=== PATIENT | female | born 1955 | race Caucasian/White ===

== ENCOUNTER 2024-02-26 17:10 | Emergency (ER) | payer MEDICARE ==
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
[2024-02-26 18:06] LABS: Basophils % (A) 0 %; Eosinophils # (A) 0.3 k/uL (0-0.7); Eosinophils % (A) 3 %; HCT 42.6 % (34.0-46.0); HGB 13.9 gm/dL (11.4-16.0); Lymphocytes # (A) 1.4 k/uL (1.0-4.8); Lymphocytes % (A) 16 %; MCH 28.6 pg (25.0-35.0); MCHC 32.6 g/dL (31.0-37.0); MCV 87.7 fL (80.0-100.0); Mean Platelet Volume 7.3; Monocytes # (A) 0.4 k/uL (0-1.0); Monocytes % (A) 5 %; Neutrophils # (A) 6.7 k/uL (1.3-7.7); Neutrophils % (A) 76 %; Platelet Count 284 k/uL (150-450); RBC 4.86 m/uL (3.80-5.40); RDW 12.8 % (11.5-15.5); WBC 8.9 k/uL (3.8-10.6)
[2024-02-26 18:15] LABS: Partial Thromboplastin Time 26.3 sec (22.0-30.0); Prothrombin Time 11.2 sec (10.0-12.5)
[2024-02-26 18:21] LABS: ALT 12 U/L (4-34); AST 15 U/L (14-36); African American GFR (CKD) 77 (>60 ml/min/1.73 sqM); Albumin 4.4 g/dL (3.5-5.0); Alkaline Phosphatase 78 U/L (38-126); Anion Gap 7 mmol/L; Blood Urea Nitrogen 18 mg/dL (7-17); Calcium 10.4 mg/dL (8.4-10.2); Carbon Dioxide 29 mmol/L (22-30); Chloride 103 mmol/L (98-107); Glucose 116 mg/dL (74-99); Non-African American GFR(CKD) 66 (>60 ml/min/1.73 sqM); Potassium 3.4 mmol/L (3.5-5.1); Sodium 139 mmol/L (137-145); Total Bilirubin 1.1 mg/dL (0.2-1.3); Total Protein 6.9 g/dL (6.3-8.2)
[2024-02-26 18:28] VITALS: TEMP 98.5
--- NOTE | 2024-02-26 19:18 | CT ---
EXAMINATION TYPE: CT brain wo con, CT angio head neck DATE OF EXAM: 02/26/2024 6:49 PM COMPARISON: None available. CLINICAL INDICATION: Female, 67 years old with history of stroke like symptoms, AMS (accession [id number]), Altered mental status. (accession [id number]) TECHNIQUE: Brain: Axial CT images of the brain were obtained with coronal and sagittal reformats created and rev iewed. Additionally, CTA of the head and neck was performed following administration of IV contrast. Contrast used: None. Oral contrast used: None. CT DLP: 1145.6 (accession [id number]), 486.9 (accession [id number]) mGycm, Automated exposure control for dose reduction was used. FINDINGS: Brain: Large partially calcified suspected dural based mass in the left frontal lobe measuring approximately 3.8 x 4.7 x 4.3 cm. There is extensive surrounding vasogenic edema in the left frontal and temporal lobes. There is severe mass effect on the adjacent frontal horn of the left lateral ventricle (axial image 33) with approximately 9 mm of rightward shift of the septum pellucidum. Basal cisterns appear grossly patent. No sizable extra-axial fluid collection. No acute calvarial fracture or scalp hematom a. The nasal sinuses and mastoid air cells appear clear. CTA head/neck: Three-vessel thoracic arch with patency of the visualized proximal main thoracic aortic arch branches . Partially visualized upper lungs demonstrate no acute pathology. Nodular scarring versus signal nodul e in the posterior aspect of the right lung apex. Borderline mild dilatation of the partially visuali zed main pulmonary artery. Visualized thoracic aorta without evidence of aneurysmal dilatation or foc al dissection. No evidence of flow limiting stenosis involving the bilateral common carotid and internal carotid art eries. Visualized portions of the proximal vertebral arteries appear patent. Slightly dominant right vertebr al artery. No evidence of flow-limiting stenosis in the vertebral arteries or evidence of acute focal dissection. Basilar artery is patent. Bilateral intracranial internal carotid arteries appear patent. Bilateral middle cerebral arteries ar e patent. Anterior communicating artery is patent. Visualized portions of the anterior cerebral arter ies are patent. Posterior to indicating arteries are hypoplastic. Posterior cerebral arteries appear patent. Dural based mass in the left frontal lobe and straight avid contrast enhancement but is relatively is odense on noncontrast portion of the study. There are scattered regions of calcifications within the mass and severe vasogenic edema as described above. IMPRESSION: CT brain: * Large enhancing partially calcified dural-based mass in the left frontal lobe measuring 3.8 x 4.7 x 4.3 cm with severe associated surrounding vasogenic edema and significant mass effect on the fronta l horn of the left lateral ventricle. There is approximately 9 mm of rightward shift involving the se ptum pellucidum. Finding is felt to favor a large meningioma and Neurosurgical consultation is recomm ended. CTA head/neck: * No evidence of dissection of the cervical internal carotid arteries or vertebral arteries. * No any evidence of significant stenosis at the carotid bifurcations. * No evidence of intracranial high-grade stenosis or intracranial aneurysm. [facility], Workstation: [id number], 02/26/2024 7:16 PM
[2024-02-26] MEDS: METOPROLOL TARTRATE 25 MG TAB PO STA (19:51)
[2024-02-26] MEDS: DEXAMETHASONE SOD PHOSPHATE 10 MG/ML 1 ML VIAL IV STA (19:51)
[2024-02-26 22:29] VITALS: BP 128/65; PULSE 69; RESP 16
== END 2024-02-26 22:30 | disposition other institution (70) ==
LOC: EC 17:10
DX: G93.9 Disorder of brain, unspecified (principal)
CPT/HCPCS: 36415; 93005; 80053; 85025; 85610; 85730; 70496; 70450; 70498; 99285; 96374; J1100; Q9967

== ENCOUNTER 2024-07-03 14:25 | Emergency (ER) | payer MEDICARE ==
[2024-07-03 14:37] VITALS: TEMP 97.7
--- NOTE | 2024-07-03 14:48 | ED ---
General Adult HPI - General Chief complaint: Extremity Injury, Upper Stated complaint: fall Time Seen by Provider: 07/03/24 14:34 Source: patient, EMS Mode of arrival: EMS Limitations: no limitations - History of Present Illness Initial comments: Dictation was produced using [employer] dictation software. please excuse any grammatical, word or spelling errors. Chief Complaint: 69-year-old female presents to the emergency department left shoulder pain after fall History of Present Illness: Patient 69-year-old female presents to the emergency department after fall. She has left shoulder pain. She states that she missed 1 step fell on outstretched hand. Patient denies any anticoagulation use. Denies any head trauma or neck pain. Patient has no other complaints. Patient arrived by EMS was given some fentanyl states that did not help very much. The ROS documented in this emergency department record has been reviewed and confirmed by me. Those systems with pertinent positive or negative responses have been documented in the HPI. All other systems are other negative and/or noncontributory. - Related Data Home Medications Medication Instructions Recorded Confirmed Atorvastatin [Lipitor] 20 mg PO DAILY 02/26/24 07/03/24 Ergocalciferol [Vitamin D2 (1250 1,250 mcg PO TUCKER 02/26/24 07/03/24 Mcg = 58011 Iu)] Sertraline [Zoloft] 25 mg PO DAILY 02/26/24 07/03/24 metFORMIN HCL 1,000 mg PO BID 02/26/24 07/03/24 Clotrimazole/Betameth Cream 1 applic TOPICAL DAILY PRN 07/03/24 07/03/24 [Lotrisone] Furosemide [Lasix] 20 mg PO DAILY 07/03/24 07/03/24 Losartan [Cozaar] 50 mg PO DAILY 07/03/24 07/03/24 Pantoprazole [Protonix] 40 mg PO DAILY 07/03/24 07/03/24 Allergies Allergy/AdvReac Type Severity Reaction Status Date / Time No Known Allergies Allergy Verified 07/03/24 15:52 Review of Systems ROS Statement: Those systems with pertinent positive or pertinent negative responses have been documented in the HPI. ROS Other: All systems not noted in ROS Statement are negative. Past Medical History Past Medical History: Cancer, Diabetes Mellitus, Hyperlipidemia, Sleep Apnea/CPAP/BIPAP History of Any Multi-Drug Resistant Organisms: None Reported Past Surgical History: Bowel Resection Additional Past Surgical History / Comment(s): has only 1/4 of colon left Past Psychological History: No Psychological Hx Reported Smoking Status: Never smoker Past Alcohol Use History: Unable to Obtain Past Drug Use History: Unable to Obtain General Exam - General Exam Comments Initial Comments: General: Well-appearing, nontoxic, no acute distress. Head: Normocephalic, atraumatic Eyes: PERRLA, EOMI ENT: Airway patent Chest: Nonlabored breathing Skin: No visual rash, normal skin tone Neuro: Alert and oriented 3 Musculoskeletal: No gross abnormalities Left shoulder: No pain along the clavicle, palpatory tenderness along the left proximal humerus Limitations: no limitations Course Vital Signs 07/03/24 14:30 Temperature 97.7 F Pulse Rate 90 Respiratory 16 Rate Blood Pressure 145/77 O2 Sat by Pulse 96 Oximetry - Reevaluation(s) Reevaluation #1: 07/03/24 15:[address] Jay requested patient be transferred to [facility] for shoulder specialist. Medical Decision Making - Medical Decision Making Was pt. sent in by a medical professional or institution (, PA, ACCOUNTING OFFICER, urgent care, hospital, or halfway...) When possible be specific @ -No Did you speak to anyone other than the patient for history (EMS, parent, family, police, friend...)? What history was obtained from this source @ -No Did you review nursing and triage notes (agree or disagree)? Why? @ -I reviewed and agree with nursing and triage notes Were old charts reviewed (outside hosp., previous admission, EMS record, old EKG, old radiological studies, urgent care reports/EKG's, halfway records)? Report findings @ -No old charts were reviewed Differential Diagnosis (chest pain, altered mental status, abdominal pain women, abdominal pain men, vaginal bleeding, musculoskeletal, weakness, fever, dyspnea, syncope, headache, dizziness, GI bleed, back pain, seizure, CVA, p alpatations, mental health)? @ -Shoulder fracture, shoulder dislocation, shoulder strain EKG interpreted by me (3pts min.). @ -None done X-rays interpreted by me (1pt min.). @ -L left shoulder x-ray shows fracture dislocation into the left humerus CT interpreted by me (1pt min.). @ -None done U/S interpreted by me (1pt. min.). @ -None done What testing was considered but not performed or refused? (CT, X-rays, U/S, labs)? Why? @ -None What meds were considered but not given or refused? Why? @ -None Was smoking cessation discussed for >3mins.? @ -No Were there social determinants of health that impacted care today? How? (Homelessness, low income, unemployed, alcoholism, drug addiction, transportation, low edu. Level, literacy, decrease access to med. care, senior care, rehab)? @ -No Was there de-escalation of care discussed even if they declined (Discuss DNR or withdrawal of care, Hospice)? DNR status @ -No What co-morbidities impacted this encounter? (DM, HTN, Smoking, COPD, CAD, Ca ncer, CVA, ARF, Chemo, Hep., AIDS, mental health diagnosis, sleep apnea, morbid obesity)? @ -None Was patient admitted / discharged? Hospital course, mention meds given and route, prescriptions, significant lab abnormalities, going to OR and other pertinent info. @ -69-year-old female with left shoulder pain after fall on outstretched hand. Vital signs stable. Patient significant distress. Neurovascularly intact. Patient x-ray shows fracture dislocation of the left proximal humerus. Case discussed with on-call orthopedic surgery Dr. Li states that patient would benefit from seeing shoulder trauma specialist. Patient care discussed with [facility] transfer line. Patient will be transferred Case discussed with Dr. Clayton who is going to except patient care for transfer. Did you discuss the management of the patient with other professionals (professionals i.e. , PA, ACCOUNTING OFFICER, lab, RT, psych nurse, social work coordinator, internet security specialist, teacher, credit products officer, patient case manager)? Give summary @ -See above Was critical care preformed (if so, how long)? @ -No Undiagnosed new problem with uncertain prognosis? @ -No Drug Therapy requiring intensive monitoring for toxicity (Heparin, Nitro, Insulin, Cardizem)? @ -No Were any procedures done? @ -No Diagnosis/symptom? Acute, or Chronic, or Acute on Chronic? Uncomplicated (without systemic symptoms) or Complicated (systemic symptoms)? @ -Fracture dislocation of the left shoulder Side effects of treatment? @ -No Exacerbation, Progression, or Severe Exacerbation? @ -No Poses a threat to life or bodily function? How? (Chest pain, [place], [place], pneumonia, PE, COPD, DKA, ARF, appy, cholecystitis, CVA, Diverticulitis, Homicidal, Suicidal, threat to staff... and all critical care pts) @ -yes Disposition Clinical Impression: Fracture dislocation of left shoulder joint Disposition: OTHER INSTITUTION NOT DEFINED Condition: Serious Referrals: Ainsley Garcia MD [Primary Care Provider] - 1-2 days Time of Disposition: 15:48 - Out of Hospital Transfer - Req. Specs Out of Hospital Transfer - Requested Specifics: Other Emergency Center ([facility])
[2024-07-03] MEDS: MORPHINE SULFATE 4 MG/ML SYRINGE IVP STA (14:57)
[2024-07-03] MEDS: MORPHINE SULFATE 4 MG/ML SYRINGE IM STA (15:10)
--- NOTE | 2024-07-03 15:32 | XR ---
EXAMINATION TYPE: XR shoulder complete LT DATE OF EXAM: 07/03/2024 3:24 PM COMPARISON: None. CLINICAL INDICATION: Female, 69 years old with history of shoulder pain, pain TECHNIQUE: XR shoulder complete LT views were obtained FINDINGS: Anterior shoulder dislocation with fracture noted about the proximal humerus. Rather large avulsion c omponent likely to arise from the greater tuberosity. Glenoid fracture is also difficult to exclude A C joint is intact. IMPRESSION: As above [facility], , 07/03/2024 3:29 PM
[2024-07-03] MEDS: HYDROmorphone 1 MG/ML 1 ML SYRINGE IVP STA (16:26)
[2024-07-03 16:39] VITALS: BP 134/77; PULSE 77; RESP 18
== END 2024-07-03 17:45 | disposition other institution (70) ==
LOC: EC 14:25
DX: S42.202A Unspecified fracture of upper end of left humerus, initial encounter for closed fracture (principal); W10.9XXA Fall (on) (from) unspecified stairs and steps, initial encounter
CPT/HCPCS: 73030; 99285; 96374; 96375; J2270; J1171